=== PATIENT | female | born 1970 | race Caucasian/White ===

== ENCOUNTER 2018-01-06 11:47 | Emergency (ER) | payer BC ==
[2018-01-06] MEDS ORDERED: DILAUDID 2 MG INJECTION IM ONE (12:30)
[2018-01-06] MEDS ORDERED: Phenergan 25 MG INJ IM ONE (12:30)
--- NOTE | 2018-01-06 12:34 | ERPHSYRPT ---
- History of Present Illness Time Seen by Provider: 01/06/18 12:03 Source: patient Exam Limitations: clinical condition Patient Subjective Stated Complaint: pt states she has been sleeping in a chair all week during her son's hospilatization. reports she bent over to put her shoes on yesterday and her back tensed up and she had trouble sitting back up. reports constant pain to the lower back that is worse when she moves. Triage Nursing Assessment: pt is aox3, pupils perrl, resps easy and non labored , pt afebrile, radial pulses strong and equal. pt can move all extremities freely and ambulate without assistance. pt sensation is intact. pt denies any previous injury to the back. Physician History: PATIENT WITH A HISTORY OF LOW BACK YOUNG AFTER SLEEPING IN CHAIR X 1 WEEK WHILE SON WAS HOSPITALIZED, STATES PAIN IS SEVERE, RADIATES TO BOTH HIPS, DENIES LOSS OF BOWEL OR BLADDER DYSFUNCTION. Timing/Duration: week(s) Method of Injury: other (SLEEPING IN CHAIR FOR 1 WEEK) Quality: sharp Back Pain Location: lumbar spine Back Pain Radiation: buttocks Severity of Pain-Max: moderate Severity of Pain-Current: moderate Modifying Factors: Improves With: movement Associated Symptoms: muscle spasms Previous symptoms: no prior history Allergies/Adverse Reactions: amoxicillin [Amoxicillin] Allergy (Verified 01/06/18 11:59) Home Medications: Alprazolam 0.25 mg [xanAX 0.25 MG] 0.25 mg PO HS PRN PRN 09/28/13 [History ] Citalopram Hydrobromide 20 mg* [ceLEXa 20 MG] 20 mg PO DAILY 09/28/13 [ History] Levothyroxine Sodium 100 Mcg [Synthroid 100 Mcg] 88 mcg PO DAILY 09/28/13 [ History] Gabapentin 100 mg PO HS 02/01/14 [History] Hx Tetanus, Diphtheria Vaccination/Date Given: Yes Hx Influenza Vaccination/Date Given: Yes Hx Pneumococcal Vaccination/Date Given: No Immunizations Up to Date: Yes - Review of Systems Constitutional: No Fever, No Chills Eyes: No Symptoms Ears, Nose, & Throat: No Symptoms Respiratory: No Cough, No Dyspnea Cardiac: No Symptoms, No Chest Pain, No Edema, No Syncope Abdominal/Gastrointestinal: No Symptoms, No Abdominal Pain, No Nausea, No Vomiting, No Diarrhea Genitourinary Symptoms: No Dysuria Musculoskeletal: No Back Pain, No Neck Pain Skin: No Rash Neurological: No Dizziness, No Focal Weakness, No Sensory Changes Psychological: No Symptoms Endocrine: No Symptoms All Other Systems: Reviewed and Negative - Past Medical History Pertinent Past Medical History: Yes Cardiac History: Hypertension Respiratory History: Other Psycho-Social History: Depression Other Medical History: MITRAL VALVE PROLAPSE - Past Surgical History Past Surgical History: Yes Gastrointestinal: Cholecystectomy Female Surgical History: Hysterectomy Other Surgical History: THYROIDECTOMY-2010 - Social History Smoking Status: Never smoker Exposure to second hand smoke: No Drug Use: none Patient Lives Alone: No - Female History Hx Last Menstrual Period: hyst 1999 Hx Now: No - Nursing Vital Signs Nursing Vital Signs: Initial Vital Signs Temperature 97.8 F 01/06/18 11:51 Pulse Rate 70 01/06/18 11:51 Respiratory Rate 20 01/06/18 11:51 Blood Pressure 117/67 01/06/18 11:51 O2 Sat by Pulse Oximetry 100 01/06/18 11:51 Pain Scale Pain Intensity 3 - Physical Exam General Appearance: no apparent distress, alert Eye Exam: PERRL/EOMI, eyes nml inspection Neck Exam: normal inspection, non-tender, supple, full range of motion, No meningismus, No midline tenderness Respiratory Exam: normal breath sounds, lungs clear, No respiratory distress Cardiovascular Exam: regular rate/rhythm, normal heart sounds Gastrointestinal Exam: soft, No tenderness, No mass Back Exam: normal inspection, vertebral tenderness, decreased range of motion, muscle spasm, other (THERE IS PARASPINAL LUMBAR TENDERNESS LI-L5. NO SACROILIAC OR CVA TENDERNESS) Extremity Exam: normal inspection, normal range of motion, No calf tenderness, No pedal edema Neurologic Exam: alert, oriented x 3, cooperative, loan services professional II-XII nml as tested, normal mood/affect, nml station & gait, sensation nml, No motor deficits Skin Exam: normal color, warm, dry, No rash SpO2: 100 Oxygen Delivery: Room Air - Radiology Exams L-Spine X-ray Interpretation: Interpreted by me (MILD DEXTROSCOLIOSIS, MILD DEGENERATIVE CHANGES) Ordered Tests: Active Orders 24 hr Category Date Time Status LUMBAR LIMITED (2 OR 3 VIEWS) Stat Exams 01/06/18 12:29 Taken UA W/RFX UR CULTURE Stat Lab 01/06/18 13:00 Completed Medication Summary Discontinued Medications Generic Name Dose Route Start Last Admin Trade Name Freq PRN Reason Stop Dose Admin Hydromorphone HCl 1 mg 01/06/18 12:30 01/06/18 12:44 Dilaudid 2 Mg Injection IM 01/06/18 12:31 1 mg STAT ONE Administration Hydromorphone HCl Confirm 01/06/18 12:41 Dilaudid 2 Mg Injection Administered 01/06/18 12:42 Dose 2 mg .ROUTE .STK-MED ONE Promethazine HCl 25 mg 01/06/18 12:30 01/06/18 12:44 Phenergan 25 Mg Inj IM 01/06/18 12:31 25 mg STAT ONE Administration Promethazine HCl Confirm 01/06/18 12:40 Phenergan 25 Mg Inj Administered 01/06/18 12:41 Dose 25 mg .ROUTE .STK-MED ONE Lab/Rad Data: Laboratory Results 01/06/18 Range/Units 13:00 Ur Collection Type CLEAN CATCH Urine Color YELLOW (YELLOW) Urine Appearance CLEAR (CLEAR) Urine pH 5.0 (5-6) Ur Specific Issue 1.005 (1.005-1.025) Urine Protein NEGATIVE (Negative) Urine Ketones NEGATIVE (NEGATIVE) Urine Blood NEGATIVE (0-5) Reji/ul Urine Nitrite NEGATIVE (NEGATIVE) Urine Bilirubin NEGATIVE (NEGATIVE) Urine Urobilinogen NORMAL (0-1) mg/dL Ur Leukocyte Esterase NEGATIVE (NEGATIVE) Urine Culture Reflexed NO (NO) Urine Glucose NEGATIVE (NEGATIVE) mg/dL Specimen Received 01/06/18 1300 - Progress Progress: improved Progress Note: 01/06/18 13:41 DILAUDID 1MG/PHENERGAN 25MG IM Counseled pt/family regarding: lab results, diagnosis, need for follow-up, rad results - Departure Time of Disposition: 13:45 Departure Disposition: Home Clinical Impression: ACUTE LOW BACK PAIN Condition: Stable Critical Care Time: No Referrals: ELVIA NOLEN [Primary Care Provider] - Additional Instructions: FOLLOWUP WITH YOUR PRIMARY CARE PROVIDER TOMORROW FOR EVALUATION, TREATMENT AND PHYSICAL THERAPY. TORADOL 10MG EVERY 6 HOURS NEEDED FOR PAIN. NORFLEX 100MG TWICE DAILY FOR 5 DAYS. Prescriptions: Ketorolac Tromethamine [Toradol] 10 mg PO Q6HPRN PRN #20 tablet PRN Reason: Pain Orphenadrine Citrate 100 mg [Norflex 100 MG Tablet] 100 mg PO BID #10 tab
[2018-01-06] MEDS ORDERED: Phenergan 25 MG INJ ONE (12:40)
[2018-01-06] MEDS ORDERED: DILAUDID 2 MG INJECTION ONE (12:41)
[2018-01-06 13:21] LABS: Appearance CLEAR (CLEAR); Bilirubin NEGATIVE (NEGATIVE); Blood NEGATIVE Ery/ul (0-5); Glucose NEGATIVE (NEGATIVE); Ketones NEGATIVE (NEGATIVE); Leukocyte Esterase NEGATIVE (NEGATIVE); Nitrite NEGATIVE (NEGATIVE); Protein,Urine Dip NEGATIVE (Negative); Specific Gravity 1.005 (1.005-1.025); Urobilinogen NORMAL mg/dL (0-1)
[2018-01-06 13:56] VITALS: BP 110/76; PULSE 66; O2SAT 99
--- NOTE | 2018-01-06 17:32 | XRAY ---
Indication: Low back pain. Comparison: None 3 views of the lumbar spine demonstrates 6 lumbar vertebral segments with minimal multilevel endplate spurring, minimal levoscoliosis centered at L1, and cholecystectomy clips. No other bony, articular, or soft tissue abnormalities.
== END 2018-01-06 13:56 | disposition home or self-care (01) ==
LOC: ED 11:47
DX: M54.5 Low back pain (principal); M62.830 Muscle spasm of back; Z79.899 Other long term (current) drug therapy
CPT/HCPCS: 72100; 81002; 96372; 99283; 99284; J1170; J2550

== ENCOUNTER 2021-06-08 17:52 | Observation (INO) | payer BC ==
[2021-06-08] MEDS ORDERED: PROTONIX 40 MG IV IV ONE ×2 (18:13→18:19)
[2021-06-08] MEDS ORDERED: Zofran 4 MG/2 ML VIAL IV ONE (18:13)
[2021-06-08] MEDS ORDERED: Sodium Chloride 0.9% 1000 ML 1,000 ML IV STA (18:13)
[2021-06-08] MEDS ORDERED: Sodium Chloride 0.9% 1000 ML 1,000 ML ONE ×2 (18:19→22:55)
[2021-06-08] MEDS ORDERED: Zofran 4 MG/2 ML VIAL ONE (18:19)
--- NOTE | 2021-06-08 18:25 | ERPHSYRPT ---
- History of Present Illness Historian: patient Exam Limitations: no limitations Timing/Duration: yesterday Activities at Onset: none Quality: cramping Abdominal Pain Onset Location: LUQ, LLQ, suprapubic Pain Radiation: no radiation Severity of Pain-Max: moderate Severity of Pain-Current: moderate Modifying Factors: Improves With: defecating Associated Symptoms: diarrhea (Liquid stools do have some fairly bright red blood.) Previous symptoms: no prior history Hx Tetanus, Diphtheria Vaccination/Date Given: Yes Hx Influenza Vaccination/Date Given: Yes Hx Pneumococcal Vaccination/Date Given: No <HUE WALLACE - Last Filed: 06/08/21 18:49> <LENNIE RAMOS - Last Filed: 06/08/21 22:52> - History of Present Illness Time Seen by Provider: 06/08/21 18:20 Physician History: Patient is a 50-year-old female who presents with a complaint of having 3 large formed stools yesterday followed by the onset of bloody diarrhea up to 10 stools through the night and today. She has not had a bloody stool of any kind since for the past 3 hours she denies any nausea or vomiting she does have a history of hysterectomy and unilateral oophorectomy as her only abdominal surgeries. She has never had a colonoscopy and has no previous diagnosis of GI bleeding diverticulitis etc. She is on no blood thinners. (HUE WALLACE) Allergies/Adverse Reactions: amoxicillin [Amoxicillin] Allergy (Verified 06/08/21 18:55) Home Medications: ALPRAZolam 0.25 MG [xanAX 0.25 MG] 0.5 mg PO HS PRN PRN 09/28/13 [History] Gabapentin 300 mg PO HS 02/01/14 [History] Aspirin EC 81 mg [Ecotrin 81 mg] 81 mg PO DAILY 06/08/21 [History] Atorvastatin Calcium 40 mg PO DAILY 06/08/21 [History] Gabapentin 100 mg [Neurontin 100 MG] 200 mg PO DAILY 06/08/21 [History] Levothyroxine Sodium 75 Mcg [Synthroid 75 Mcg] 75 mcg PO DAILY 06/08/21 [History] Lisinopril/Hydrochlorothiazide [Lisinopril-Hctz 10-12.5 mg Tab] 10 - 12.5 mg PO DAILY 06/08/21 [History] Montelukast Sodium 10 mg [Singulair 10 MG] 10 mg PO DAILY 06/08/21 [History] Venlafaxine HCl [Venlafaxine HCl ER] 150 mg PO DAILY 06/08/21 [History] Vitamin B Complex [Super B Complex] 1 tab PO DAILY 06/08/21 [History] - Review of Systems Constitutional: No Fever, No Chills Eyes: No Symptoms Ears, Nose, & Throat: No Symptoms Respiratory: No Cough, No Dyspnea Cardiac: No Chest Pain, No Edema, No Syncope Abdominal/Gastrointestinal: Abdominal Pain, Diarrhea, Hematochezia, No Nausea, No Vomiting Genitourinary Symptoms: No Dysuria Musculoskeletal: No Back Pain, No Neck Pain Skin: No Rash Neurological: No Dizziness, No Focal Weakness, No Sensory Changes Psychological: No Symptoms Endocrine: No Symptoms All Other Systems: Reviewed and Negative <HUE WALLACE - Last Filed: 06/08/21 18:49> - Past Medical History Pertinent Past Medical History: Yes Cardiac History: Hypertension Respiratory History: Other Psycho-Social History: Depression Other Medical History: MITRAL VALVE PROLAPSE - Past Surgical History Past Surgical History: Yes Gastrointestinal: Cholecystectomy Female Surgical History: Hysterectomy Other Surgical History: THYROIDECTOMY-2010 - Social History Smoking Status: Never smoker Exposure to second hand smoke: No Drug Use: none Patient Lives Alone: No - Female History Hx Now: No <HUE WALLACE [employer] Last Filed: 06/08/21 18:49> - Physical Exam General Appearance: no apparent distress, alert Eye Exam: PERRL/EOMI, eyes nml inspection Ears, Nose, Throat Exam: normal ENT inspection, pharynx normal, moist mucous membranes Neck Exam: normal inspection, non-tender, supple, full range of motion Respiratory Exam: normal breath sounds, lungs clear, No respiratory distress Cardiovascular Exam: regular rate/rhythm, normal heart sounds Gastrointestinal/Abdomen Exam: soft, No tenderness, No mass Back Exam: normal inspection, normal range of motion, No CVA tenderness, No vertebral tenderness Extremity Exam: normal inspection, normal range of motion, pelvis stable Neurologic Exam: alert, oriented x 3, cooperative, normal mood/affect, nml cerebellar function, sensation nml, No motor deficits Skin Exam: normal color, warm, dry <HUE WALLACE Last Filed: 06/08/21 18:49> - Nursing Vital Signs Nursing Vital Signs: Initial Vital Signs Temperature 99 F 06/08/21 18:10 Pulse Rate 92 H 06/08/21 18:10 Respiratory Rate 20 06/08/21 18:10 Blood Pressure 122/66 06/08/21 18:10 O2 Sat by Pulse Oximetry 95 06/08/21 18:10 Pain Scale Pain Intensity 0 - Course Nursing assessment & vital signs reviewed: Yes <MADISONHUE - Last Filed: 06/08/21 18:49> - CT Exams Abdomen/Pelvis CT Interpretation: Tele-radiologist Report (No comps. Moderate left hemicolon circumferential wall thickening with stranding favors colitis. No complications. 19.8 cm fatty liver. Remaining abdomen pelvis negative.) <LENNIE RAMOS - Last Filed: 06/08/21 22:52> Ordered Tests: Active Orders 24 hr Category Date Time Status IV Insertion STAT Care 06/08/21 18:13 Active ABDOMEN AND PELVIS W CONTRAST [CT] Stat Exams 06/08/21 19:51 Taken CHEST 1 VIEW (PORTABLE) Stat Exams 06/08/21 18:13 Taken CBC W DIFF Stat Lab 06/08/21 18:15 Completed CMP Stat Lab 06/08/21 18:15 Completed FECAL OCCULT BLOOD - SCREENING Stat Lab 06/08/21 18:15 Ordered Lactic Acid Stat Lab 06/08/21 18:32 Completed PROTIME WITH INR Stat Lab 06/08/21 18:15 Completed PTT Stat Lab 06/08/21 18:15 Completed UA W/RFX UR CULTURE Stat Lab 06/08/21 18:18 Completed Transfer Order Routine Transfer 06/08/21 Ordered Medication Summary Generic Name Dose Route Start Last Admin Trade Name Freq PRN Reason Stop Dose Admin Potassium Chloride 20 meq in 100 mls @ 50 mls/hr 06/08/21 23:00 Potassium Chloride 20 Meq In Water 100ml IV 06/09/21 02:59 Q2H MAEVE Discontinued Medications Generic Name Dose Route Start Last Admin Trade Name Freq PRN Reason Stop Dose Admin Sodium Chloride 1,000 mls @ 999 mls/hr 06/08/21 18:13 06/08/21 19:23 Sodium Chloride 0.9% 1000 Ml IV 06/08/21 19:13 Infused .Q1H1M STA Infusion Sodium Chloride Confirm 06/08/21 18:19 Sodium Chloride 0.9% 1000 Ml Administered 06/08/21 18:20 Dose 1,000 mls @ ud .ROUTE .STK-MED ONE Levofloxacin/Dextrose 500 mg in 100 mls @ 100 mls/hr 06/08/21 21:07 06/08/21 21:58 Levofloxacin 500mg/100ml D5w IV 06/08/21 22:06 100 ml/hr STAT STA 100 mls/hr Administration Metronidazole 500 mg in 100 mls @ 200 mls/hr 06/08/21 21:08 06/08/21 21:58 Flagyl 500 Mg Ivpb IV 06/08/21 21:37 Infused STAT STA Infusion Metronidazole Confirm 06/08/21 21:24 Flagyl 500 Mg Ivpb Administered 06/08/21 21:25 Dose 500 mg in 100 mls @ ud IV .STK-MED ONE Levofloxacin/Dextrose Confirm 06/08/21 21:57 Levofloxacin 500mg/100ml D5w Administered 06/08/21 21:58 Dose 500 mg in 100 mls @ ud IV .STK-MED ONE Ondansetron HCl 4 mg 06/08/21 18:13 06/08/21 18:22 Zofran 4 Mg/2 Ml Vial IV 06/08/21 18:14 4 mg STAT ONE Administration Ondansetron HCl Confirm 06/08/21 18:19 Zofran 4 Mg/2 Ml Vial Administered 06/08/21 18:20 Dose 4 mg .ROUTE .STK-MED ONE Pantoprazole Sodium 40 mg 06/08/21 18:13 06/08/21 18:22 Protonix 40 Mg Iv IV 06/08/21 18:14 40 mg STAT ONE Administration Pantoprazole Sodium Confirm 06/08/21 18:19 Protonix 40 Mg Iv Administered 06/08/21 18:20 Dose 40 mg IV .STK-MED ONE Potassium Chloride 40 meq 06/08/21 19:54 06/08/21 19:56 Klor Con 10 Meq PO 06/08/21 19:55 40 meq STAT ONE Administration Potassium Chloride Confirm 06/08/21 19:55 Klor Con 10 Meq Administered 06/08/21 19:56 Dose 40 meq PO .STK-MED ONE Lab/Rad Data: Laboratory Result Diagrams 06/08/21 18:15 06/08/21 18:15 Laboratory Results 06/08/21 06/08/21 06/08/21 Range/Units 21:35 18:37 18:32 WBC (4.0-10.5) K/mm3 RBC (4.1-5.4) M/mm3 Hgb (12.0-16.0) gm/dl Hct (35-47) % MCV (78-100) fl MCH (26-32) pg MCHC (32-36) g/dl RDW (11.5-14.0) % Plt Count (150-450) K/mm3 MPV (7.5-11.0) fl Gran % (36.0-66.0) % Eos # (Auto) (0-0.5) Absolute Lymphs (auto) (1.0-4.6) Absolute Monos (auto) (0.0-1.3) Lymphocytes % (24.0-44.0) % Monocytes % (0.0-12.0) % Eosinophils % (0.00-5.0) % Basophils % (0.0-0.4) % Absolute Granulocytes (1.4-6.9) Basophils # (0-0.4) PT (9.4-12.5) SECONDS INR (0.8-3.0) APTT (25.1-36.5) SECONDS Sodium (137-145) mmol/L Potassium (3.5-5.1) mmol/L Chloride (98-107) mmol/L Carbon Dioxide (22-30) mmol/L Anion Gap (5-15) MEQ/L BUN (7-17) mg/dL Creatinine (0.52-1.04) mg/dL Estimated GFR ML/MIN Glucose (74-106) mg/dL Lactic Acid 1.4 (0.4-2.0) Calcium (8.4-10.2) mg/dL Total Bilirubin (0.2-1.3) mg/dL AST (14-36) U/L ALT (0-35) U/L Alkaline Phosphatase (38-126) U/L Serum Total Protein (6.3-8.2) g/dL Albumin (3.5-5.0) g/dL Urine Color (YELLOW) Urine Appearance (CLEAR) Urine pH (5-6) Ur Specific [place] (1.005-1.025) Urine Protein (Negative) Urine Ketones (NEGATIVE) Urine Blood (0-5) Reji/ul Urine Nitrite (NEGATIVE) Urine Bilirubin (NEGATIVE) Urine Urobilinogen (0-1) mg/dL Ur Leukocyte Esterase (NEGATIVE) Urine WBC (Auto) (0-5) /HPF Urine RBC (Auto) (0-2) /HPF U Epithel Cells (Auto) (FEW) /HPF Urine Bacteria (Auto) (NEGATIVE) /HPF Urine Mucus (Auto) (NEGATIVE) /HPF Urine Culture Reflexed (NO) Urine Glucose (NEGATIVE) mg/dL SARS-CoV-2 (PCR) NEGATIVE (NEGATIVE) ABO Group A Rh Factor NEGATIVE Antibody Screen NEGATIVE (NEGATIVE) 06/08/21 06/08/21 06/08/21 Range/Units 18:18 18:15 18:15 WBC (4.0-10.5) K/mm3 RBC (4.1-5.4) M/mm3 Hgb (12.0-16.0) gm/dl Hct (35-47) % MCV (78-100) fl MCH (26-32) pg MCHC (32-36) g/dl RDW (11.5-14.0) % Plt Count (150-450) K/mm3 MPV (7.5-11.0) fl Gran % (36.0-66.0) % Eos # (Auto) (0-0.5) Absolute Lymphs (auto) (1.0-4.6) Absolute Monos (auto) (0.0-1.3) Lymphocytes % (24.0-44.0) % Monocytes % (0.0-12.0) % Eosinophils % (0.00-5.0) % Basophils % (0.0-0.4) % Absolute Granulocytes (1.4-6.9) Basophils # (0-0.4) PT 11.5 (9.4-12.5) SECONDS INR 0.97 (0.8-3.0) APTT 29.7 (25.1-36.5) SECONDS Sodium 137 (137-145) mmol/L Potassium 2.8 L* (3.5-5.1) mmol/L Chloride 98 (98-107) mmol/L Carbon Dioxide 26 (22-30) mmol/L Anion Gap 15.7 H (5-15) MEQ/L BUN 15 (7-17) mg/dL Creatinine 0.58 (0.52-1.04) mg/dL Estimated GFR > 60.0 ML/MIN Glucose 97 (74-106) mg/dL Lactic Acid (0.4-2.0) Calcium 9.8 (8.4-10.2) mg/dL Total Bilirubin 0.90 (0.2-1.3) mg/dL AST 37 H (14-36) U/L ALT 42 H (0-35) U/L Alkaline Phosphatase 81 (38-126) U/L Serum Total Protein 7.7 (6.3-8.2) g/dL Albumin 4.8 (3.5-5.0) g/dL Urine Color YAHAIRA (YELLOW) Urine Appearance SLIGHTLY CLOUDY (CLEAR) Urine pH 5.0 (5-6) Ur Specific [place] 1.020 (1.005-1.025) Urine Protein NEGATIVE (Negative) Urine Ketones NEGATIVE (NEGATIVE) Urine Blood SMALL (0-5) Reji/ul Urine Nitrite NEGATIVE (NEGATIVE) Urine Bilirubin NEGATIVE (NEGATIVE) Urine Urobilinogen NEGATIVE (0-1) mg/dL Ur Leukocyte Esterase NEGATIVE (NEGATIVE) Urine WBC (Auto) 3-5 (0-5) /HPF Urine RBC (Auto) 3-5 (0-2) /HPF U Epithel Cells (Auto) RARE (FEW) /HPF Urine Bacteria (Auto) NONE (NEGATIVE) /HPF Urine Mucus (Auto) MODERATE (NEGATIVE) /HPF Urine Culture Reflexed NO (NO) Urine Glucose NEGATIVE (NEGATIVE) mg/dL SARS-CoV-2 (PCR) (NEGATIVE) ABO Group Rh Factor Antibody Screen (NEGATIVE) 06/08/21 Range/Units 18:15 WBC 12.9 H (4.0-10.5) K/mm3 RBC 4.15 (4.1-5.4) M/mm3 Hgb 12.9 (12.0-16.0) gm/dl Hct 39.0 (35-47) % MCV 94.0 (78-100) fl MCH 31.1 (26-32) pg MCHC 33.1 (32-36) g/dl RDW 12.4 (11.5-14.0) % Plt Count 317 (150-450) K/mm3 MPV 9.3 (7.5-11.0) fl Gran % 65.6 (36.0-66.0) % Eos # (Auto) 0.17 (0-0.5) Absolute Lymphs (auto) 3.16 (1.0-4.6) Absolute Monos (auto) 1.07 (0.0-1.3) Lymphocytes % 24.6 (24.0-44.0) % Monocytes % 8.3 (0.0-12.0) % Eosinophils % 1.3 (0.00-5.0) % Basophils % 0.2 (0.0-0.4) % Absolute Granulocytes 8.45 H (1.4-6.9) Basophils # 0.02 (0-0.4) PT (9.4-12.5) SECONDS INR (0.8-3.0) APTT (25.1-36.5) SECONDS Sodium (137-145) mmol/L Potassium (3.5-5.1) mmol/L Chloride (98-107) mmol/L Carbon Dioxide (22-30) mmol/L Anion Gap (5-15) MEQ/L BUN (7-17) mg/dL Creatinine (0.52-1.04) mg/dL Estimated GFR ML/MIN Glucose (74-106) mg/dL Lactic Acid (0.4-2.0) Calcium (8.4-10.2) mg/dL Total Bilirubin (0.2-1.3) mg/dL AST (14-36) U/L ALT (0-35) U/L Alkaline Phosphatase (38-126) U/L Serum Total Protein (6.3-8.2) g/dL Albumin (3.5-5.0) g/dL Urine Color (YELLOW) Urine Appearance (CLEAR) Urine pH (5-6) Ur Specific [place] (1.005-1.025) Urine Protein (Negative) Urine Ketones (NEGATIVE) Urine Blood (0-5) Reji/ul Urine Nitrite (NEGATIVE) Urine Bilirubin (NEGATIVE) Urine Urobilinogen (0-1) mg/dL Ur Leukocyte Esterase (NEGATIVE) Urine WBC (Auto) (0-5) /HPF Urine RBC (Auto) (0-2) /HPF U Epithel Cells (Auto) (FEW) /HPF Urine Bacteria (Auto) (NEGATIVE) /HPF Urine Mucus (Auto) (NEGATIVE) /HPF Urine Culture Reflexed (NO) Urine Glucose (NEGATIVE) mg/dL SARS-CoV-2 (PCR) (NEGATIVE) ABO Group Rh Factor Antibody Screen (NEGATIVE) - Progress Progress: improved Discussed with DrAnali: Genaro Will see patient in: hospital (observation) Counseled pt/family regarding: lab results, diagnosis, rad results <LENNIE RAMOS - Last Filed: 06/08/21 22:52> - Progress Progress Note: Patient endorsed to Dr. Ramos at approximately 7 PM. Patient reassessed. Pain well controlled. Patient has a significant colitis with bloody diarrhea. Patient is also hypokalemic. IV fluids infused. Antibiotics provided. Pain medication provided. We are working on replacing her potassium as well. We will admit patient for observation. Plan of care discussed with patient. She agrees to admission [facility] for further evaluation and treatment. Case discussed with Dr. Dominguez who accepts admission to observation. Patient is Covid negative. 06/08/21 22:50 (LENNIE RAMOS) - Departure Departure Disposition: Home Critical Care Time: No <MADISONHUE - Last Filed: 06/08/21 18:49> - Departure Departure Disposition: Observation <LENNIE RAMOS - Last Filed: 06/08/21 22:52> - Departure Clinical Impression: Bloody diarrhea, Colitis, Abdominal pain, Fatty liver, Hypokalemia Condition: Stable Referrals: ELVIA NOLEN [Primary Care Provider] - Instructions: Diarrhea and Travelers' Diarrhea, Adult (DC)
[2021-06-08 18:50] LABS: Absolute Neutrophil Ct (ANC) 8.45 (1.4-6.9); BASOPHIL % 0.2 % (0.0-0.4); Basophil (Absolute #) 0.02 (0-0.4); Eosinophil % 1.3 % (0.00-5.0); Eosinophil (Absolute #) 0.17 (0-0.5); Hemoglobin 12.9 gm/dl (12.0-16.0); Lymphocyte (Absolute #) 3.16 (1.0-4.6); Lymphocytes % 24.6 % (24.0-44.0); Mean Corpuscular Hemoglobin 31.1 pg (26-32); Mean Corpuscular Hgb Concent. 33.1 g/dl (32-36); Mean Platelet Volume 9.3 fl (7.5-11.0); Monocyte (Absolute #) 1.07 (0.0-1.3); Monocytes % 8.3 % (0.0-12.0); Neutrophil % 65.6 % (36.0-66.0); Platelet Count 317 K/mm3 (150-450); Red Blood Count 4.15 M/mm3 (4.1-5.4); Red Cell Distribution Width 12.4 % (11.5-14.0); White Blood Count 12.9 K/mm3 (4.0-10.5)
[2021-06-08 19:06] LABS: INR 0.97 (0.8-3.0); PROTIME 11.5 SECONDS (9.4-12.5)
[2021-06-08 19:08] LABS: PTT 29.7 SECONDS (25.1-36.5)
[2021-06-08 19:17] LABS: Appearance SLIGHTLY CLOUDY (CLEAR); Bilirubin NEGATIVE (NEGATIVE); Blood SMALL Ery/ul (0-5); Epithelial Cells RARE /HPF (FEW); Glucose NEGATIVE (NEGATIVE); Ketones NEGATIVE (NEGATIVE); Leukocyte Esterase NEGATIVE (NEGATIVE); Mucus MODERATE /HPF (NEGATIVE); Nitrite NEGATIVE (NEGATIVE); Protein,Urine Dip NEGATIVE (Negative); Urobilinogen NEGATIVE mg/dL (0-1)
[2021-06-08 19:31] LABS: ALBUMIN 4.8 g/dL (3.5-5.0); ALKALINE PHOSPHATASE 81 U/L (38-126); ANION GAP 15.7 MEQ/L (5-15); BLOOD UREA NITROGEN 15 mg/dL (7-17); CHLORIDE 98 mmol/L (98-107); Calcium 9.8 mg/dL (8.4-10.2); Carbon Dioxide 26 mmol/L (22-30); Creatinine 1 0.58 mg/dL (0.52-1.04); EST GLOMERULAR FILTRATION RATE > 60.0 ML/MIN; Glucose 97 mg/dL (74-106); SGOT/AST 37 U/L (14-36); SGPT/ALT 42 U/L (0-35); SODIUM 137 mmol/L (137-145); Total Protein 7.7 g/dL (6.3-8.2)
[2021-06-08 19:34] LABS: Potassium 2.8 mmol/L (3.5-5.1)
[2021-06-08] MEDS ORDERED: Klor Con 10 MEQ PO ONE ×2 (19:54→19:55)
[2021-06-08 20:47] LABS: ABO TYPING A; Antibody Screen NEGATIVE (NEGATIVE); RH TYPING NEGATIVE
[2021-06-08] MEDS ORDERED: Levofloxacin 500MG/100ML D5W 500 MG/100 ML BAG IV STA (21:07)
[2021-06-08] MEDS ORDERED: FLAGYL 500 MG IVPB 500 MG/100 ML BAG IV STA (21:08)
[2021-06-08] MEDS ORDERED: FLAGYL 500 MG IVPB 500 MG/100 ML BAG IV ONE (21:24)
[2021-06-08] MEDS ORDERED: Levofloxacin 500MG/100ML D5W 500 MG/100 ML BAG IV ONE (21:57)
[2021-06-08] MEDS ORDERED: POTASSIUM CHLORIDE 20 mEq IN WATER 100ML 100 ML IV ONE (22:56)
[2021-06-08] MEDS ORDERED: POTASSIUM CHLORIDE 20 mEq IN WATER 100ML 20 MEQ/100 ML BAG IV SCH (23:00)
[2021-06-08] MEDS ORDERED: Sodium Chloride 0.9% 1000 ML 1,000 ML IV SCH (23:00)
[2021-06-08] MEDS ORDERED: MORPHINE SULFATE 2 MG INJ IV PRN (23:27)
[2021-06-09] MEDS: Sodium Chloride 0.9% 1000 ML 1,000 ML IV SCH ×2 (00:14→05:57)
[2021-06-09] MEDS ORDERED: POTASSIUM CHLORIDE 20 mEq IN WATER 100ML 20 MEQ/100 ML BAG IV ONE (00:32)
[2021-06-09 06:28] LABS: Absolute Neutrophil Ct (ANC) 6.81 (1.4-6.9); BASOPHIL % 0.2 % (0.0-0.4); Basophil (Absolute #) 0.02 (0-0.4); Eosinophil % 1.3 % (0.00-5.0); Eosinophil (Absolute #) 0.14 (0-0.5); Hematocrit 35.2 % (35-47); Hemoglobin 11.4 gm/dl (12.0-16.0); Lymphocyte (Absolute #) 2.73 (1.0-4.6); Lymphocytes % 26.1 % (24.0-44.0); Mean Cell Volume 96.7 fl (78-100); Mean Corpuscular Hemoglobin 31.3 pg (26-32); Mean Corpuscular Hgb Concent. 32.4 g/dl (32-36); Mean Platelet Volume 8.8 fl (7.5-11.0); Monocyte (Absolute #) 0.74 (0.0-1.3); Monocytes % 7.1 % (0.0-12.0); Neutrophil % 65.3 % (36.0-66.0); Platelet Count 234 K/mm3 (150-450); Red Blood Count 3.64 M/mm3 (4.1-5.4); Red Cell Distribution Width 12.4 % (11.5-14.0); White Blood Count 10.4 K/mm3 (4.0-10.5)
[2021-06-09 06:50] LABS: ALBUMIN 3.8 g/dL (3.5-5.0); ALKALINE PHOSPHATASE 63 U/L (38-126); ANION GAP 11.4 MEQ/L (5-15); BLOOD UREA NITROGEN 10 mg/dL (7-17); CHLORIDE 105 mmol/L (98-107); Calcium 9.2 mg/dL (8.4-10.2); Carbon Dioxide 25 mmol/L (22-30); Creatinine 1 0.56 mg/dL (0.52-1.04); EST GLOMERULAR FILTRATION RATE > 60.0 ML/MIN; Glucose 104 mg/dL (74-106); Potassium 3.5 mmol/L (3.5-5.1); SGOT/AST 26 U/L (14-36); SGPT/ALT 31 U/L (0-35); SODIUM 138 mmol/L (137-145); Total Protein 6.3 g/dL (6.3-8.2)
[2021-06-09 07:36] VITALS: O2SAT 95
--- NOTE | 2021-06-09 08:41 | XRAY ---
Indication: Left upper quadrant pain. Blood in stool. Multiple contiguous axial images obtained through the abdomen and pelvis using 80 cc Isovue 370 contrast. Comparison: None Lung bases are clear. Heart not enlarged. Noncontrasted stomach and bowel loops appear nonobstructed. Normal appendix. Distal transverse, descending, and proximal sigmoid colon demonstrates moderate circumferential wall thickening with pericolonic stranding favoring colitis. No free fluid/air. Previous cholecystectomy and hysterectomy. 19.8 cm fatty liver. Remaining liver, pancreas, spleen, adrenal glands, kidneys, ureters, and bladder are unremarkable. Minimal scattered aortoiliac calcifications. No AAA or pathologic retroperitoneal lymphadenopathy. Osseous structures intact with minimal degenerative changes throughout the spine. Impression: 1. Left hemicolon colitis. No complications. 2. Incidental fatty liver and chronic bony findings.
--- NOTE | 2021-06-09 08:47 | XRAY ---
Indication: Pain. Comparison: None Portable chest demonstrates normal heart, lungs, and bony thorax.
[2021-06-09] MEDS ORDERED: K-LYTE 25 MEQ PO ONE (08:57)
[2021-06-09] MEDS ORDERED: FLAGYL 500 MG IVPB 500 MG/100 ML BAG IV SCH (09:00)
[2021-06-09] MEDS ORDERED: Ativan 0.5 MG PO PRN (09:06)
[2021-06-09] MEDS ORDERED: hydroDIURIL 25 MG PO SCH (10:00)
[2021-06-09] MEDS ORDERED: ZOCOR 20MG PO SCH (10:00)
[2021-06-09] MEDS ORDERED: VITAMIN B COMPLEX PO SCH (10:00)
[2021-06-09] MEDS ORDERED: Effexor XR 75 MG PO SCH (10:00)
[2021-06-09] MEDS ORDERED: Klor Con 10 MEQ PO SCH (10:00)
[2021-06-09] MEDS ORDERED: Zestril 10 MG PO SCH (10:00)
[2021-06-09] MEDS ORDERED: VITA-BEE WITH C PO SCH (10:00)
[2021-06-09] MEDS ORDERED: NON-FORMULARY ITEM (Venlafaxine Hcl [Venlafaxine Hcl Er] 150 MG) PO SCH (10:00)
[2021-06-09] MEDS ORDERED: Neurontin 100 MG PO SCH ×2 (10:00→22:00)
[2021-06-09] MEDS ORDERED: Singulair 10 MG PO SCH (10:00)
[2021-06-09] MEDS ORDERED: NON-FORMULARY ITEM (Lisinopril/Hydrochlorothiazide [Lisinopril-Hctz 10-12.5 Mg Tab] 1 TAB) PO SCH (10:00)
[2021-06-09] MEDS ORDERED: SYNTHROID 75 MCG PO SCH (10:00)
[2021-06-09] MEDS ORDERED: LIPITOR 40MG PO SCH (10:00)
[2021-06-09 12:07] VITALS: BP 125/57; PULSE 75
[2021-06-09] MEDS ORDERED: NEURONTIN 300 MG PO SCH (22:00)
[2021-06-09] MEDS ORDERED: ECOTRIN 81 MG PO SCH (22:00)
--- NOTE | 2021-06-09 23:26 | PCM.SSS ---
History of Present Illness - Chief Complaint Chief Complaint: diarrhea, abdominal pain for 1 day History of Present Illness: is a 50 year old female.who presents with a complaint of having 3 large formed stools yesterday followed by the onset of bloody diarrhea up to 10 stools through the night and today. She has not had a bloody stool of any kind since for the past 3 hours she denies any nausea or vomiting she does have a history of hysterectomy and unilateral oophorectomy as her only abdominal surgeries. She has never had a colonoscopy and has no previous diagnosis of GI bleeding diverticulitis etc. She is on no blood thinners. - Review of Systems Constitutional: No Fever, No Chills Eyes: No Symptoms Ears, Nose, & Throat: No Symptoms Respiratory: No Cough, No Short Of Breath Cardiac: No Chest Pain, No Edema, No Syncope Abdominal/Gastrointestinal: Abdominal Pain, Diarrhea, No Nausea, No Vomiting Genitourinary Symptoms: No Dysuria Musculoskeletal: No Back Pain, No Neck Pain Skin: No Rash Neurological: No Dizziness, No Focal Weakness, No Sensory Changes Psychological: No Symptoms Endocrine: No Symptoms Hematologic/Lymphatic: No Symptoms Immunological/Allergic: No Symptoms Medications & Allergies Home Medications: Home Medication List Gabapentin 300 mg PO HS 02/01/14 [History Confirmed 06/08/21] Aspirin EC 81 mg [Ecotrin 81 mg] 81 mg PO HS 06/08/21 [History Confirmed 06/08/21] Atorvastatin Calcium 40 mg PO DAILY 06/08/21 [History Confirmed 06/08/21] Gabapentin 100 mg [Neurontin 100 MG] 200 mg PO DAILY 06/08/21 [History Confirmed 06/08/21] Levothyroxine Sodium 75 Mcg [Synthroid 75 Mcg] 75 mcg PO DAILY 06/08/21 [History Confirmed 06/08/21] Lisinopril/Hydrochlorothiazide [Lisinopril-Hctz 10-12.5 mg Tab] 10 - 12.5 mg PO DAILY 06/08/21 [History Confirmed 06/08/21] Lorazepam 0.5 mg [Ativan 0.5 MG] 0.5 mg PO Q12H PRN PRN 06/08/21 [History Confirmed 06/08/21] Montelukast Sodium 10 mg [Singulair 10 MG] 10 mg PO DAILY 06/08/21 [History Confirmed 06/08/21] Venlafaxine HCl [Venlafaxine HCl ER] 150 mg PO DAILY 06/08/21 [History Confirmed 06/08/21] Vitamin B Complex [Super B Complex] 1 tab PO DAILY 06/08/21 [History Confirmed 06/08/21] Metronidazole 500 mg [Flagyl 500 MG] 500 mg PO TID 5 Days #15 tablet 06/09/21 [Rx] Allergies/Adverse Reactions: Allergies Allergy/AdvReac Type Severity Reaction Status Date / Time amoxicillin [Amoxicillin] Allergy Verified 06/08/21 18:55 - Past Medical History Past Medical History: Yes Neurological History: Migraines ENT History: No Pertinent History Cardiac History: Hypertension Respiratory History: Other Endocrine Medical History: Hypothyroidism Musculoskelatal History: No Pertinent History GI Medical History: No Pertinent History History: No Pertinent History Pyscho-Social History: Depression Reproductive Disorders: No Pertinent History Comment: MITRAL VALVE PROLAPSE - Female History Hx Last Menstrual Period: 1999 Are you now?: No - Past Surgical History Past Surgical History: Yes Neuro Surgical History: No Pertinent History Cardiac History: No Pertinent History Respiratory Surgery: No Pertinent History GI Surgical History: Cholecystectomy Genitourinary Surgical Hx: No Pertinent History Musculskeletal Surgical Hx: No Pertinent History Female Surgical History: Hysterectomy Other Surgical History: THYROIDECTOMY-2010 - Social History Smoking Status: Former smoker Exposure to second hand smoke: No Alcohol: Rarely Drug Use: none - Physical Exam Vital Signs: Vital Signs - 24 hr Temp Pulse Resp BP Pulse Ox 06/09/21 12:00 98.0 F 75 16 125/57 95 06/09/21 07:35 98.0 F 74 18 117/56 95 06/09/21 04:05 97.7 F 70 16 110/59 97 06/08/21 23:37 98.9 F 85 16 128/66 95 General Appearance: no apparent distress, alert Neurologic Exam: alert, oriented x 3, cooperative, normal mood/affect, nml cerebellar function, nml station & gait, sensation nml, No motor deficits Eye Exam: PERRL/EOMI, eyes nml inspection Ears, Nose, Throat Exam: normal ENT inspection, TMs normal, pharynx normal, moist mucous membranes Neck Exam: normal inspection, non-tender, supple, full range of motion Respiratory Exam: normal breath sounds, lungs clear, No respiratory distress Cardiovascular Exam: regular rate/rhythm, normal heart sounds, normal peripheral pulses Gastrointestinal/Abdomen Exam: soft, normal bowel sounds, No tenderness, No mass Back Exam: normal inspection, normal range of motion, No CVA tenderness, No vertebral tenderness Extremity Exam: normal inspection, normal range of motion, pelvis stable Skin Exam: normal color, warm, dry, No rash Lymphatic Exam: No adenopathy Results - Labs Lab/Micro Results: Lab Results-Last 24 Hours 06/09/21 06/09/21 Range/Units 06:15 06:15 WBC 10.4 (4.0-10.5) K/mm3 RBC 3.64 L (4.1-5.4) M/mm3 Hgb 11.4 L (12.0-16.0) gm/dl Hct 35.2 (35-47) % MCV 96.7 (78-100) fl MCH 31.3 (26-32) pg MCHC 32.4 (32-36) g/dl RDW 12.4 (11.5-14.0) % Plt Count 234 (150-450) K/mm3 MPV 8.8 (7.5-11.0) fl Gran % 65.3 (36.0-66.0) % Eos # (Auto) 0.14 (0-0.5) Absolute Lymphs (auto) 2.73 (1.0-4.6) Absolute Monos (auto) 0.74 (0.0-1.3) Lymphocytes % 26.1 (24.0-44.0) % Monocytes % 7.1 (0.0-12.0) % Eosinophils % 1.3 (0.00-5.0) % Basophils % 0.2 (0.0-0.4) % Absolute Granulocytes 6.81 (1.4-6.9) Basophils # 0.02 (0-0.4) Sodium 138 (137-145) mmol/L Potassium 3.5 D (3.5-5.1) mmol/L Chloride 105 (98-107) mmol/L Carbon Dioxide 25 (22-30) mmol/L Anion Gap 11.4 (5-15) MEQ/L BUN 10 (7-17) mg/dL Creatinine 0.56 (0.52-1.04) mg/dL Estimated GFR > 60.0 ML/MIN Glucose 104 (74-106) mg/dL Calcium 9.2 (8.4-10.2) mg/dL Total Bilirubin 0.70 (0.2-1.3) mg/dL AST 26 (14-36) U/L ALT 31 (0-35) U/L Alkaline Phosphatase 63 (38-126) U/L Serum Total Protein 6.3 (6.3-8.2) g/dL Albumin 3.8 (3.5-5.0) g/dL Microbiology 06/08/21 18:15 Stool Culture Result 1 - Final Stool Not Reportable Stool Culture Result 2 - Final Not Reportable Stool Culture Result 3 - Final Not Reportable Stool Culture Result 4 - Final Not Reportable Stool Culture Organism Suscept - Final Not Reportable Campylobacter Result 1 - Final Not Reportable Campylobacter Result 2 - Final Not Reportable Campylobactor Result 3 - Final Not Reportable Campylobacter Result 4 - Final Not Reportable Campylobactor Susceptibility - Final Not Reportable - Radiology Impressions Radiology Exams & Impressions: Radiology Procedures Category Date Time Status ABDOMEN AND PELVIS W CONTRAST [CT] Stat Exams 06/08/21 19:51 Completed CHEST 1 VIEW (PORTABLE) Stat Exams 06/08/21 18:13 Completed Assessment/Plan (1) Abdominal pain Status: Acute Qualifiers: Abdominal location: generalized Qualified Code(s): R10.84 - Generalized abdominal pain Code(s): R10.9 - UNSPECIFIED ABDOMINAL PAIN (2) Colitis Status: Acute Code(s): K52.9 - NONINFECTIVE GASTROENTERITIS AND COLITIS, UNSPECIFIED (3) Hypokalemia Status: Resolved Code(s): E87.6 - HYPOKALEMIA Hospital Summary - Hospital Course Hospital Course: Chief Complaint Diagnosis Colitis Allergies Allergy/AdvReac Type Severity Reaction Status Date / Time amoxicillin [Amoxicillin] Allergy Verified 06/08/21 18:55 Vital Signs (Last 24 hours) Temp Pulse Resp BP Pulse Ox 06/09/21 12:00 98.0 F 75 16 125/57 95 06/09/21 07:35 98.0 F 74 18 117/56 95 06/09/21 04:05 97.7 F 70 16 110/59 97 06/08/21 23:37 98.9 F 85 16 128/66 95 Home Medications Medication Instructions Recorded Confirmed Last Taken Type Aspirin EC 81 mg [Ecotrin 81 81 mg PO HS 06/08/21 06/08/21 Unknown History mg] Atorvastatin Calcium 40 mg PO DAILY 06/08/21 06/08/21 Unknown History Gabapentin 100 mg [Neurontin 200 mg PO DAILY 06/08/21 06/08/21 06/08/21 08:00 History 100 MG] Levothyroxine Sodium 75 Mcg 75 mcg PO DAILY 06/08/21 06/08/21 Unknown History [Synthroid 75 Mcg] Lisinopril/Hydrochlorothiazide 10 - 12.5 mg PO DAILY 06/08/21 06/08/21 Unknown History [Lisinopril-Hctz 10-12.5 mg Tab] Lorazepam 0.5 mg [Ativan 0.5 0.5 mg PO Q12H PRN PRN 06/08/21 06/08/21 Unknown History MG] Montelukast Sodium 10 mg 10 mg PO DAILY 06/08/21 06/08/21 Unknown History [Singulair 10 MG] Venlafaxine HCl [Venlafaxine HCl 150 mg PO DAILY 06/08/21 06/08/21 Unknown History ER] Vitamin B Complex [Super B Complex] 1 tab PO DAILY 06/08/21 06/08/21 Unknown History Metronidazole 500 mg [Flagyl 500 mg PO TID 5 Days #15 tablet 06/09/21 Unknown Rx 500 MG] Current Medications Discontinued Medications Generic Name Dose Route Start Last Admin Trade Name Simone PRN Reason Stop Dose Admin Aspirin 81 mg 06/09/21 22:00 Ecotrin 81 Mg PO 07/09/21 21:59 HS MAEVE Gabapentin 200 mg 06/09/21 10:00 06/09/21 09:21 Neurontin 100 Mg PO 07/09/21 09:59 200 mg DAILY MAEVE Administration Gabapentin 300 mg 06/09/21 22:00 Neurontin 300 Mg PO 07/09/21 21:59 HS MAEVE Hydrochlorothiazide 12.5 mg 06/09/21 10:00 06/09/21 09:20 Hydrodiuril 25 Mg PO 07/09/21 09:59 12.5 mg DAILY MAEVE Administration Sodium Chloride 1,000 mls @ 999 mls/hr 06/08/21 18:13 06/08/21 19:23 Sodium Chloride 0.9% 1000 Ml IV 06/08/21 19:13 Infused .Q1H1M STA Infusion Sodium Chloride Confirm 06/08/21 18:19 Sodium Chloride 0.9% 1000 Ml Administered 06/08/21 18:20 Dose 1,000 mls @ ud .ROUTE .STK-MED ONE Levofloxacin/Dextrose 500 mg in 100 mls @ 100 mls/hr 06/08/21 21:07 06/08/21 22:59 Levofloxacin 500mg/100ml D5w IV 06/08/21 22:06 Infused STAT STA Infusion Metronidazole 500 mg in 100 mls @ 200 mls/hr 06/08/21 21:08 06/08/21 21:58 Flagyl 500 Mg Ivpb IV 06/08/21 21:37 Infused STAT STA Infusion Metronidazole Confirm 06/08/21 21:24 Flagyl 500 Mg Ivpb Administered 06/08/21 21:25 Dose 500 mg in 100 mls @ ud IV .STK-MED ONE Levofloxacin/Dextrose Confirm 06/08/21 21:57 Levofloxacin 500mg/100ml D5w Administered 06/08/21 21:58 Dose 500 mg in 100 mls @ ud IV .STK-MED ONE Potassium Chloride 20 meq in 100 mls @ 50 mls/hr 06/08/21 23:00 06/08/21 22:58 Potassium Chloride 20 Meq In Water 100ml IV 06/09/21 02:59 50 mls/hr Q2H MAEVE Administration Sodium Chloride 1,000 mls @ 100 mls/hr 06/08/21 23:00 06/08/21 22:58 Sodium Chloride 0.9% 1000 Ml IV 07/08/21 22:59 100 mls/hr .Q10H MAEVE Administration Potassium Chloride Confirm 06/08/21 22:56 Potassium Chloride 20 Meq In Water 100ml Administered 06/08/21 22:57 Dose 100 mls @ ud IV .STK-MED ONE Sodium Chloride Confirm 06/08/21 22:55 Sodium Chloride 0.9% 1000 Ml Administered 06/08/21 22:56 Dose 1,000 mls @ ud .ROUTE .STK-MED ONE Sodium Chloride 1,000 mls @ 100 mls/hr 06/08/21 23:27 06/09/21 05:57 Sodium Chloride 0.9% 1000 Ml IV 07/08/21 23:26 100 mls/hr .Q10H MAEVE Administration Potassium Chloride 20 meq in 100 mls @ 50 mls/hr 06/09/21 00:32 06/09/21 01:06 Potassium Chloride 20 Meq In Water 100ml IV 06/09/21 02:31 50 mls/hr STAT ONE Administration Metronidazole 500 mg in 100 mls @ 200 mls/hr 06/09/21 09:00 06/09/21 09:21 Flagyl 500 Mg Ivpb IV 07/09/21 08:59 200 mls/hr Q8HT MAEVE Administration Levothyroxine Sodium 75 mcg 06/09/21 10:00 06/09/21 09:21 Synthroid 75 Mcg PO 07/09/21 09:59 75 mcg DAILY MAEVE Administration Lisinopril 10 mg 06/09/21 10:00 06/09/21 09:21 Zestril 10 Mg PO 07/09/21 09:59 10 mg DAILY MAEVE Administration Lorazepam 0.5 mg 06/09/21 09:06 Ativan 0.5 Mg PO 07/09/21 09:05 Q12H PRN PRN ANXIETY Montelukast Sodium 10 mg 06/09/21 10:00 06/09/21 09:21 Singulair 10 Mg PO 07/09/21 09:59 10 mg DAILY MAEVE Administration Morphine Sulfate 2 mg 06/08/21 23:27 Morphine Sulfate 2 Mg Inj IV 06/13/21 23:26 Q4H PRN PRN PAIN Multivitamins 1 tab 06/09/21 10:00 06/09/21 09:39 Kylie-Bee With C PO 07/09/21 09:59 1 tab DAILY MAEVE Administration Non-Formulary Medication 1 tab 06/09/21 10:00 Lisinopril/Hydrochlorothiazide [Lisinopril-Hctz 10-12.5 Mg Tab] PO 07/09/21 09:59 DAILY MAEVE Ondansetron HCl 4 mg 06/08/21 18:13 06/08/21 18:22 Zofran 4 Mg/2 Ml Vial IV 06/08/21 18:14 4 mg STAT ONE Administration Ondansetron HCl Confirm 06/08/21 18:19 Zofran 4 Mg/2 Ml Vial Administered 06/08/21 18:20 Dose 4 mg .ROUTE .STK-MED ONE Pantoprazole Sodium 40 mg 06/08/21 18:13 06/08/21 18:22 Protonix 40 Mg Iv IV 06/08/21 18:14 40 mg STAT ONE Administration Pantoprazole Sodium Confirm 06/08/21 18:19 Protonix 40 Mg Iv Administered 06/08/21 18:20 Dose 40 mg IV .STK-MED ONE Potassium Bicarbonate 50 meq 06/09/21 08:57 06/09/21 09:20 K-Lyte 25 Meq PO 06/09/21 08:58 50 meq STAT ONE Administration Potassium Chloride 40 meq 06/08/21 19:54 06/08/21 19:56 Klor Con 10 Meq PO 06/08/21 19:55 40 meq STAT ONE Administration Potassium Chloride Confirm 06/08/21 19:55 Klor Con 10 Meq Administered 06/08/21 19:56 Dose 40 meq PO .STK-MED ONE Potassium Chloride 10 meq 06/09/21 10:00 06/09/21 09:21 Klor Con 10 Meq PO 07/09/21 09:59 10 meq BID MAEVE Administration Simvastatin 40 mg 06/09/21 10:00 06/09/21 09:21 Zocor 20mg PO 07/09/21 09:59 40 mg DAILY MAEVE Administration Venlafaxine HCl 150 mg 06/09/21 10:00 06/09/21 09:21 Effexor Xr 75 Mg PO 07/09/21 09:59 150 mg DAILY MAEVE Administration Intake & Output (Last 24 hours) 06/07/21 06/08/21 06/09/21 06/10/21 11:59 11:59 11:59 11:59 Intake Total 1298 380 Output Total 750 Balance 548 380 Weight 75.6 kg Laboratory Results (Last 24 hours) 06/09/21 06/09/21 06:15 06:15 WBC 10.4 RBC 3.64 L Hgb 11.4 L Hct 35.2 MCV 96.7 MCH 31.3 MCHC 32.4 RDW 12.4 Plt Count 234 MPV 8.8 Gran % 65.3 Eos # (Auto) 0.14 Absolute Lymphs (auto) 2.73 Absolute Monos (auto) 0.74 Lymphocytes % 26.1 Monocytes % 7.1 Eosinophils % 1.3 Basophils % 0.2 Absolute Granulocytes 6.81 Basophils # 0.02 Sodium 138 Potassium 3.5 D Chloride 105 Carbon Dioxide 25 Anion Gap 11.4 BUN 10 Creatinine 0.56 Estimated GFR > 60.0 Glucose 104 Calcium 9.2 Total Bilirubin 0.70 AST 26 ALT 31 Alkaline Phosphatase 63 Serum Total Protein 6.3 Albumin 3.8 Orders (Last 24 hours) Category Date Time Status Bedrest with BRP/BSC ROUTINE Activity 06/08/21 23:27 Active Code Status Order ROUTINE Care 06/08/21 23:27 Active IV Care Q6H Care 06/08/21 23:27 Active Neuro Checks Q4H Care 06/08/21 23:[address] in Observation ROUTINE Care 06/08/21 23:27 Active Post K level [Order K Level 2 hours post-inf] 2 HRS Care 06/09/21 04:00 Active POST K-INFUSED Telemetry q6h Care 06/08/21 23:27 Active Discharge Routine Discharge 06/09/21 Ordered CBC W DIFF AM.LAB Lab 06/09/21 06:15 Completed CMP AM.LAB Lab 06/09/21 06:15 Completed Aspirin EC 81 mg [Ecotrin 81 mg] Med 06/09/21 22:00 Discontinued 81 mg PO HS Gabapentin 100 mg [Neurontin 100 MG] Med 06/09/21 10:00 Discontinued 200 mg PO DAILY Gabapentin 300 mg [Neurontin 300 mg] Med 06/09/21 22:00 Discontinued 300 mg PO HS Hydrochlorothiazide 25 mg [hydroDIURIL 25 MG] Med 06/09/21 10:00 Discontinued 12.5 mg PO DAILY Levothyroxine Sodium 75 Mcg [Synthroid 75 Mcg] Med 06/09/21 10:00 Discontinued 75 mcg PO DAILY Lisinopril 10 mg [Zestril 10 MG] Med 06/09/21 10:00 Discontinued 10 mg PO DAILY Lisinopril/Hydrochlorothiazide [Lisinopril-Hctz 10-12.5 Med 06/09/21 10:00 Discontinued mg Tab] 1 tab PO DAILY Lorazepam 0.5 mg [Ativan 0.5 MG] Med 06/09/21 09:06 Discontinued 0.5 mg PO Q12H PRN PRN Metronidazole 500 mg Premix [Flagyl 500 mg Ivpb] Med 06/09/21 09:00 Discontinued 500 mg in 100 ml IV Q8HT Montelukast Sodium 10 mg [Singulair 10 MG] Med 06/09/21 10:00 Discontinued 10 mg PO DAILY Morphine Sulfate 2 mg Inj Med 06/08/21 23:27 Discontinued 2 mg IV Q4H PRN PRN NaCl 0.9% 1000 ml [Sodium Chloride 0.9% 1000 ML] 1,000 Med 06/08/21 22:55 Discontinued ml .ROUTE UD NaCl 0.9% 1000 ml [Sodium Chloride 0.9% 1000 ML] 1,000 Med 06/08/21 23:00 Discontinued ml IV 100 mls/hr NaCl 0.9% 1000 ml [Sodium Chloride 0.9% 1000 ML] 1,000 Med 06/08/21 23:27 Discontinued ml IV 100 mls/hr Potassium Bicarbonate 25 MEQ [K-Lyte 25 Meq] Med 06/09/21 08:57 Discontinued 50 meq PO STAT ONE Potassium Chloride 10 Meq Tab* [Klor Con 10 MEQ] [facility] 06/09/21 10:00 Discontinued 10 meq PO BID Potassium Chloride 20Meq/100Ml [POTASSIUM CHLORIDE 20 Med 06/08/21 23:00 Discontinued mEq IN WATER 100ML] 20 meq in 100 ml IV Q2H Potassium Chloride 20Meq/100Ml [POTASSIUM CHLORIDE 20 Med 06/09/21 00:32 Disc ontinued mEq IN WATER 100ML] 20 meq in 100 ml IV STAT Potassium Chloride 20Meq/100Ml [POTASSIUM CHLORIDE 20 Med 06/08/21 22:56 Discontinued mEq IN WATER 100ML] 100 ml IV UD Simvastatin 20Mg [Zocor 20Mg] Med 06/09/21 10:00 Discontinued 40 mg PO DAILY Venlafaxine HCl ER 75 mg [Effexor XR 75 MG] Med 06/09/21 10:00 Discontinued 150 mg PO DAILY Vitamin B Comp W-C [Kylie-Bee with C] Med 06/09/21 10:00 Discontinued 1 tab PO DAILY Patient Care Notes (Last 24 hours) 06/09/21 14:10 Nursing Note by Stacy Rodriguez FAXED DISCHARGE RECORDS TO DR. GAMBOA OFFICE 06/09/21 [id number], REECE Initialized on 06/09/21 14:10 - END OF NOTE - Vitals & Intake/Output Vital Signs: Vital Signs Temperature 98.0 F 06/09/21 12:00 Pulse Rate 75 06/09/21 12:00 Respiratory Rate 16 06/09/21 12:00 Blood Pressure 125/57 06/09/21 12:00 O2 Sat by Pulse Oximetry 95 06/09/21 12:00 Intake & Output: Intake & Output 06/07/21 06/08/21 06/09/21 06/10/21 11:59 11:59 11:59 11:59 Intake Total 1298 380 Output Total 750 Balance 548 380 Weight 75.6 kg - Lab Result Diagrams: 06/09/21 06:15 06/09/21 06:15 Lab Results-Last 24 Hrs: Lab Results-Last 24 Hours 06/09/21 06/09/21 Range/Units 06:15 06:15 WBC 10.4 (4.0-10.5) K/mm3 RBC 3.64 L (4.1-5.4) M/mm3 Hgb 11.4 L (12.0-16.0) gm/dl Hct 35.2 (35-47) % MCV 96.7 (78-100) fl MCH 31.3 (26-32) pg MCHC 32.4 (32-36) g/dl RDW 12.4 (11.5-14.0) % Plt Count 234 (150-450) K/mm3 MPV 8.8 (7.5-11.0) fl Gran % 65.3 (36.0-66.0) % Eos # (Auto) 0.14 (0-0.5) Absolute Lymphs (auto) 2.73 (1.0-4.6) Absolute Monos (auto) 0.74 (0.0-1.3) Lymphocytes % 26.1 (24.0-44.0) % Monocytes % 7.1 (0.0-12.0) % Eosinophils % 1.3 (0.00-5.0) % Basophils % 0.2 (0.0-0.4) % Absolute Granulocytes 6.81 (1.4-6.9) Basophils # 0.02 (0-0.4) Sodium 138 (137-145) mmol/L Potassium 3.5 D (3.5-5.1) mmol/L Chloride 105 (98-107) mmol/L Carbon Dioxide 25 (22-30) mmol/L Anion Gap 11.4 (5-15) MEQ/L BUN 10 (7-17) mg/dL Creatinine 0.56 (0.52-1.04) mg/dL Estimated GFR > 60.0 ML/MIN Glucose 104 (74-106) mg/dL Calcium 9.2 (8.4-10.2) mg/dL Total Bilirubin 0.70 (0.2-1.3) mg/dL AST 26 (14-36) U/L ALT 31 (0-35) U/L Alkaline Phosphatase 63 (38-126) U/L Serum Total Protein 6.3 (6.3-8.2) g/dL Albumin 3.8 (3.5-5.0) g/dL Micro Results-Entire Visit: Microbiology 06/08/21 18:15 Stool Culture Result 1 - Final Stool Not Reportable Stool Culture Result 2 - Final Not Reportable Stool Culture Result 3 - Final Not Reportable Stool Culture Result 4 - Final Not Reportable Stool Culture Organism Suscept - Final Not Reportable Campylobacter Result 1 - Final Not Reportable Campylobacter Result 2 - Final Not Reportable Campylobactor Result 3 - Final Not Reportable Campylobacter Result 4 - Final Not Reportable Campylobactor Susceptibility - Final Not Reportable - Radiology Exams Ordered Rad Exams-Entire Visit: Radiology Procedures Category Date Time Status ABDOMEN AND PELVIS W CONTRAST [CT] Stat Exams 06/08/21 19:51 Completed CHEST 1 VIEW (PORTABLE) Stat Exams 06/08/21 18:13 Completed - Discharge Discharge Date: 06/09/21 Disposition: Home, Self-Care Condition: Stable Prescriptions: New Metronidazole 500 mg [Flagyl 500 MG] 500 mg PO TID 5 Days #15 tablet Continue Gabapentin 300 mg PO HS Vitamin B Complex [Super B Complex] 1 tab PO DAILY Aspirin EC 81 mg [Ecotrin 81 mg] 81 mg PO HS Atorvastatin Calcium 40 mg PO DAILY Venlafaxine HCl [Venlafaxine HCl ER] 150 mg PO DAILY Gabapentin 100 mg [Neurontin 100 MG] 200 mg PO DAILY Levothyroxine Sodium 75 Mcg [Synthroid 75 Mcg] 75 mcg PO DAILY Lisinopril/Hydrochlorothiazide [Lisinopril-Hctz 10-12.5 mg Tab] 10 - 12.5 mg PO DAILY Montelukast Sodium 10 mg [Singulair 10 MG] 10 mg PO DAILY Lorazepam 0.5 mg [Ativan 0.5 MG] 0.5 mg PO Q12H PRN PRN PRN Reason: Anxiety Instructions: Colitis Follow up with: ELVIA NOLEN [Primary Care Provider] - 06/15/21 1:00 pm Forms: Discharge Instructions
== END 2021-06-09 13:30 | disposition home or self-care (01) ==
LOC: ED 17:52 → MED SURG 23:15
PROVIDERS: ADMIT General Practice; ATTEND General Practice
DX: R10.84 Generalized abdominal pain (principal); R10.9 Unspecified abdominal pain; K52.9 Noninfective gastroenteritis and colitis, unspecified; E87.6 Hypokalemia; I10 Essential (primary) hypertension; K92.1 Melena; Z79.899 Other long term (current) drug therapy; Z20.822 Contact with and (suspected) exposure to COVID-19
CPT/HCPCS: 36000; 36415; 71045; 74177; 80053; 81001; 83605; 85025; 85610; 85730; 86850; 86900; 86901; 93268; 96360; 96374; 96375; 99285; G0378; U0003; J1956; J2405; J3480; A9270-GY

== ENCOUNTER 2023-12-30 20:43 | Emergency (ER) | payer BC ==
[2023-12-30 21:06] VITALS: TEMP 98.2
--- NOTE | 2023-12-30 21:42 | ERPHSYRPT ---
- History of Present Illness Time Seen by Provider: 12/30/23 21:35 Source: patient Exam Limitations: no limitations Patient Subjective Stated Complaint: pt states that she has had shoulder pain for the past 2 weeks Triage Nursing Assessment: pt ambulated into the er; pt is axo x4; c/o left shoulder pain; pt states 9/10 pain to left shoulder that radiates to left side of neck; good ROM to left shoulder; pt denies trauma or injury to shoulder; [facility] left radial pulse; good cap refill to left hand; skin PDW; no respiratory distress present; vitals wnl Physician History: 53yo f presents for 1mo left shoulder pain. Pt states she has had this discomfort x 1mo, progressively worsened this week. Pt states she was seen in clinic on 12/27 and was given toradol injection and tizanadine w/o significant improvement. Pt denies any known injury, denies any recent trauma to the area, denies recent MVA. Pt states she does have some pain in the left scapula and into the left upper arm, some tightness in her left trap and neck as well. Pt denies any cp, soa, vision change, HUBBARD. Occurred: other (1 month ago) Method of Injury: unknown Quality: intermittent Severity of Pain-Max: moderate Severity of Pain-Current: mild Extremities Pain Location: shoulder: left Modifying Factors: Improves With: nothing Associated Symptoms: back pain, neck pain, No chest discomfort, No chest pain, No dyspnea, No fever, No jaw pain, No short of breath Allergies/Adverse Reactions: amoxicillin [Amoxicillin] Allergy (Verified 12/30/23 20:51) Home Medications: Aspirin EC 81 mg [Ecotrin 81 mg] 81 mg PO HS 06/08/21 [History] Atorvastatin Calcium 40 mg PO DAILY 06/08/21 [History] Levothyroxine Sodium 75 Mcg [Synthroid 75 Mcg] 75 mcg PO DAILY 06/08/21 [History] Lorazepam 0.5 mg [Ativan 0.5 MG] 0.5 mg PO Q12H PRN PRN 06/08/21 [History] Venlafaxine HCl [Venlafaxine HCl ER] 150 mg PO DAILY 06/08/21 [History] Vitamin B Complex [Super B Complex] 1 tab PO DAILY 06/08/21 [History] Hydrochlorothiazide 25 mg [hydroDIURIL 25 MG] 25 mg PO DAILY 12/30/23 [History] Metformin HCl 500 mg [Glucophage 500 MG] 500 mg PO DAILY 12/30/23 [History] Semaglutide [Ozempic] 1 mg SQ WEEKLY 12/30/23 [History] Hx Tetanus, Diphtheria Vaccination/Date Given: Yes Hx Influenza Vaccination/Date Given: Yes Hx Pneumococcal Vaccination/Date Given: No Immunizations Up to Date: No Travel Risk - International Travel Have you traveled outside of the country in past 3 weeks: No - Emerging Infectious Disease Are you exhibiting symptoms associated with any current EIDs: No - Review of Systems Constitutional: No Symptoms Respiratory: No Symptoms Cardiac: No Symptoms Musculoskeletal: Back Pain, Neck Pain, Myalgias Neurological: No Symptoms, No Parasthesia, No Sensory Changes - Past Medical History Pertinent Past Medical History: Yes Neurological History: Migraines ENT History: No Pertinent History Cardiac History: High Cholesterol, Hypertension Respiratory History: Other Endocrine Medical History: Diabetes Type II, Hypothyroidism Musculoskeletal History: No Pertinent History GI Medical History: No Pertinent History History: No Pertinent History Psycho-Social History: Anxiety, Depression Female Reproductive Disorders: No Pertinent History Other Medical History: MITRAL VALVE PROLAPSE - Past Surgical History Past Surgical History: Yes Neuro Surgical History: No Pertinent History Cardiac: No Pertinent History Respiratory: No Pertinent History Gastrointestinal: Cholecystectomy Genitourinary: No Pertinent History Musculoskeletal: No Pertinent History Female Surgical History: Hysterectomy Other Surgical History: THYROIDECTOMY-2010 - Female History Hx Now: No - Social History Smoking Status: Former smoker Exposure to second hand smoke: No Drug Use: none Patient Lives Alone: No - Nursing Vital Signs Nursing Vital Signs: Initial Vital Signs Temperature 98.2 F 12/30/23 20:55 Pulse Rate 67 12/30/23 20:55 Respiratory Rate 16 12/30/23 20:55 Blood Pressure 132/87 12/30/23 20:55 O2 Sat by Pulse Oximetry 100 12/30/23 20:55 Pain Scale Pain Intensity [Left Shoulder] 9 Pain Intensity 9 - Physical Exam General Appearance: no apparent distress Cardiovascular/Respiratory Exam: chest non-tender, normal breath sounds, regular rate/rhythm, heart sounds normal Back Exam: normal inspection, normal range of motion, No vertebral tenderness Shoulder Exam: normal inspection, non-tender, no evidence of injury, normal ROM, soft tissue tenderness (TTP over trapezius, hypertonicity of left trapezius musculature extending into left lateral neck musculature), No asymmetry, No bone tenderness, No deformity, No ecchymosis, No limited ROM, No swelling Elbow/Forearm Exam: normal inspection Neuro/Tendon Exam: normal sensation, normal motor functions, normal tendon functions, No sensory deficit Mental Status Exam: alert, oriented x 3, cooperative SpO2 Interpretation: normal SpO2: 100 O2 Delivery: Room Air Ordered Tests: Active Orders 24 hr Category Date Time Status SHOULDER Stat Exams 12/30/23 21:39 Taken Medication Summary Discontinued Medications Generic Name Dose Route Start Last Admin Trade Name Freq PRN Reason Stop Dose Admin Cyclobenzaprine HCl 10 mg 12/30/23 21:39 12/30/23 21:50 Cyclobenzaprine Hcl 10 Mg Tablet PO 12/30/23 21:40 10 mg STAT ONE Administration Cyclobenzaprine HCl Confirm 12/30/23 21:48 Cyclobenzaprine Hcl 10 Mg Tablet Administered 12/30/23 21:49 Dose 10 mg .ROUTE .STK-MED ONE - Progress Progress: pain not gone completely Progress Note: 12/30/23 22:14 imaging of shoulder negative for acute fracture minimal improvement w/ PO flexeril plan for dc home w/ close PCP follow up Dr Granados likely muscle strain of trapezius musculature recommend ice/heat/ibuprofen alternating for pain and inflammation management gentle stretching as tolerated sent home with 2 10mg flexiril tablets, can take every 12hours return to ED if: pain becomes unbearable, develop numbness/tingling in hand/fingers, develop swelling in left upper extremity, develop significant HUBBARD, develop blurry vision Counseled pt/family regarding: diagnosis, need for follow-up, rad results Medical Desision Making - Diagnostic Testing Diagnostic test were ordered, analyzed, and reviewed by me: Yes Radiological Interpretation: Interpreted by me, Reviewed by me - Risk of complications Minimal Risk: Minimal risk of morbidity - Departure Departure Disposition: Home Clinical Impression: Trapezius muscle strain Qualifiers: Encounter type: initial encounter Laterality: left Qualified Code(s): S46.812A - Strain of other muscles, fascia and tendons at shoulder and upper arm level, left arm, initial encounter Condition: Stable Critical Care Time: No Referrals: FRANCHESCA GRANADOS MD [Primary Care Provider] - Follow up/PCP as directed Additional Instructions: plan for dc home w/ close PCP follow up Dr Granados likely muscle strain of trapezius musculature recommend ice/heat/ibuprofen alternating for pain and inflammation management gentle stretching as tolerated sent home with 2 10mg flexiril tablets, can take every 12hours return to ED if: pain becomes unbearable, develop numbness/tingling in hand/fingers, develop swelling in left upper extremity, develop significant HUBBARD, develop blurry vision
[2023-12-30] MEDS ORDERED: Cyclobenzaprine 10 MG ONE ×2 (21:48→22:23)
[2023-12-30] MEDS: Cyclobenzaprine 10 MG PO ONE ×2 (21:50→22:26)
[2023-12-30 22:32] VITALS: BP 116/69; PULSE 63; RESP 14; O2SAT 98
--- NOTE | 2023-12-31 07:56 | XRAY ---
Indication: Pain. No known injury. Comparison: None 3 view left shoulder demonstrates osteopenia, mild acromioclavicular degenerative changes, and mild multilevel cervical thoracic degenerative spondylosis. No other bony, articular, or soft tissue abnormalities.
== END 2023-12-30 22:34 | disposition home or self-care (01) ==
LOC: ED 20:43
DX: S46.812A Strain of other muscles, fascia and tendons at shoulder and upper arm level, left arm, initial encounter (principal); M25.512 Pain in left shoulder; E78.5 Hyperlipidemia, unspecified; I10 Essential (primary) hypertension; E11.9 Type 2 diabetes mellitus without complications; Z79.84 Long term (current) use of oral hypoglycemic drugs; Z79.85 Long-term (current) use of injectable non-insulin antidiabetic drugs; Z79.899 Other long term (current) drug therapy
CPT/HCPCS: 73030; 99283; A9270-GY